=== PATIENT | male | born 1970 | race Caucasian/White ===

== ENCOUNTER 2021-10-19 10:02 | Inpatient (IN) ==
[2021-10-19] MEDS ORDERED: KETOROLAC 30 MG/1 ML VIAL IV STA (10:52)
[2021-10-19] MEDS ORDERED: HYDROmorphone 1 MG/1 ML SYRINGE IV STA ×2 (10:52→12:07)
[2021-10-19] MEDS ORDERED: ONDANSETRON 4 MG/2 ML VIAL IV STA (10:52)
[2021-10-19] MEDS ORDERED: SODIUM CHLORIDE 0.9% 1,000 ML IV STA (10:52)
[2021-10-19 11:48] LABS: Basophils % 0.2 % (0.0-0.8); Eosinophils % 0.2 % (0.00-10.9); Hematocrit 43.7 VOL% (42.0-52.0); Immature Granulocytes % 0.4 %; Immature Granulocytes Absolute 0.02 #; Lymphocytes # 0.8 10*3/uL (1.4-4.0); Lymphocytes % 15.8 % (21.2-54.2); Mean Platelet Volume 9.4 FL (9.6-12.0); Monocytes # 0.1 10*3/uL (0.11-0.8); Monocytes % 2.2 % (1.7-12.7); Neutrophils % 81.2 % (38.7-73.9); Platelet Count 242 T/CUMM (130-400); Red Cell Distribution Width 14.6 % (9.3-17.3); White Blood Count 4.9 T/CUMM (4-12)
[2021-10-19] MEDS ORDERED: PIPERACILLIN/TAZOBACTAM 3,375 MG in SODIUM CHLORIDE 0.9% 100 ML IV STA (12:01)
[2021-10-19 12:12] LABS: Calcium 9.7 MG/DL (8.5-10.1); Osmolality,Calculated 288.4 MOS/KG (273-304); Potassium 4.7 MMOL/L (3.5-5.1)
[2021-10-19 12:46] LABS: Band Neutrophils 27 % (0-10); Lymphocytes 15 % (20-55); Metamyelocytes 1 %; Platelet Estimate Adequate; Total Cells Counted 100
[2021-10-19] MEDS ORDERED: LORazepam 2 MG/1 ML VIAL IV PRN (12:59)
[2021-10-19] MEDS ORDERED: THIAMINE INJ 100 MG, FOLIC ACID INJ 1 MG, MULTIVITAMIN INJ 10 ML in SODIUM CHLORIDE 0.9... IV ONE (12:59)
[2021-10-19] MEDS ORDERED: ALBUTEROL/IPRATROPIUM 3 ML NEB RESP TX PRN (13:05)
[2021-10-19] MEDS ORDERED: GLUCAGON 1 MG VIAL IM PRN (13:15)
[2021-10-19] MEDS ORDERED: DEXTROSE 10% 250 ML BAG IV PRN (13:15)
[2021-10-19] MEDS ORDERED: LACTATED RINGERS 1,000 ML IV SCH ×2 (13:30)
[2021-10-19] MEDS: PANTOPRAZOLE 40 MG VIAL IV SCH (15:08)
[2021-10-19] MEDS: MEROPENEM 500 MG in SODIUM CHLORIDE 0.9% 100 ML IV SCH ×2 (15:09→20:55)
[2021-10-19] MEDS ORDERED: LACTATED RINGERS 1,000 ML IV ONE (16:55)
[2021-10-19] MEDS ORDERED: THIAMINE INJ 100 MG, FOLIC ACID INJ 1 MG, MAGNESIUM SULF INJ 2 GM, MULTIVITAMIN INJ 10 ... IV SCH (17:00)
[2021-10-19] MEDS: INSULIN LISPRO 100 UNIT/ML SUBCUT SCH (17:01)
[2021-10-19] MEDS: ACETAMINOPHEN 325 MG TABLET PO PRN (17:56)
[2021-10-19] MEDS: LACTATED RINGERS IV SCH (17:57)
[2021-10-19] MEDS: HYDROmorphone 1 MG/1 ML SYRINGE IV PRN ×2 (17:57→22:47)
[2021-10-19] MEDS: FOLIC ACID 1 MG IV SCH (17:57)
[2021-10-19] MEDS: [UNRECOGNIZED DRUG - OTHER] IV SCH (17:57)
[2021-10-19] MEDS: THIAMINE IV SCH (17:57)
[2021-10-19] MEDS: ONDANSETRON 4 MG/2 ML VIAL IV PRN ×2 (17:58→22:48)
[2021-10-19] MEDS: traZODone 50 MG TABLET PO SCH (20:52)
[2021-10-19 22:17] LABS: Bacteria,Urine Occasional /HPF (Few); Bilirubin,Urine Small mg/dL (Negative); Blood, Urine Trace mg/dL (Negative); Glucose,Urine (UA) Negative (Negative); Hyaline Casts,Urine 1 /LPF (0-3); Ketones,Urine Trace mg/dL (Negative); Nitrite,Urine Negative (Negative); Protein,Urine Trace mg/dL (Negative); RBC,Urine 6 /HPF (0-4); Squamous Epithelial Cell,Urine Occasional /HPF (0-10); Urine Appearance Clear (Clear); Urine Color Yellow (Yellow); Urine Specific Gravity 1.025 (1.001-1.035)
[2021-10-20] MEDS: ONDANSETRON 4 MG/2 ML VIAL IV PRN ×3 (00:58→20:26)
[2021-10-20] MEDS: HYDROmorphone 1 MG/1 ML SYRINGE IV PRN ×4 (01:01→20:27)
[2021-10-20] MEDS: THIAMINE IV SCH ×3 (02:04→17:32)
[2021-10-20] MEDS: FOLIC ACID 1 MG IV SCH ×3 (02:04→17:32)
[2021-10-20] MEDS: LACTATED RINGERS IV SCH ×3 (02:04→17:32)
[2021-10-20] MEDS: [UNRECOGNIZED DRUG - OTHER] IV SCH ×3 (02:04→17:32)
[2021-10-20] MEDS: MEROPENEM 500 MG in SODIUM CHLORIDE 0.9% 100 ML IV SCH ×4 (02:05→20:25)
[2021-10-20 05:39] LABS: Basophils % 0.1 % (0.0-0.8); Hematocrit 36.9 VOL% (42.0-52.0); Hemoglobin 11.7 GM/DL (14.0-18.0); Immature Granulocytes % 0.9 %; Immature Granulocytes Absolute 0.12 #; Lymphocytes # 0.5 10*3/uL (1.4-4.0); Lymphocytes % 3.6 % (21.2-54.2); Mean Corpuscular HGB Conc 31.7 GM/DL (32-36); Mean Corpuscular Volume 96.9 FL (87-102); Mean Platelet Volume 9.6 FL (9.6-12.0); Monocytes # 0.4 10*3/uL (0.11-0.8); Monocytes % 2.9 % (1.7-12.7); Neutrophils % 92.5 % (38.7-73.9); Platelet Count 193 T/CUMM (130-400); Red Blood Count 3.81 MC/CUMM (3.8-5.5); Red Cell Distribution Width 15.2 % (9.3-17.3); White Blood Count 13.4 T/CUMM (4-12)
[2021-10-20 06:08] LABS: Anisocytosis Slight; Band Neutrophils 53 % (0-10); Lymphocytes 6 % (20-55); Metamyelocytes 2 %; Myelocytes 2 %; Platelet Estimate Normal; Total Cells Counted 100
[2021-10-20 06:10] LABS: Albumin 2.3 G/DL (3.4-5.0); Bilirubin,Total 0.6 MG/DL (0.20-1.00); Calcium 7.8 MG/DL (8.5-10.1); Osmolality,Calculated 286.7 MOS/KG (273-304); Potassium 5.6 MMOL/L (3.5-5.1); Total Protein 6.2 G/DL (6.4-8.2)
[2021-10-20] MEDS ORDERED: MAGNESIUM SULF RIDER 2 GM/50 ML PREMIX IV PRN (07:50)
[2021-10-20] MEDS ORDERED: MAGNESIUM SULF RIDER 4 GM/100 ML PREMIX IV PRN (07:50)
[2021-10-20] MEDS: ACETAMINOPHEN 325 MG TABLET PO PRN ×2 (08:04→19:40)
[2021-10-20] MEDS: INSULIN LISPRO 100 UNIT/ML SUBCUT SCH ×3 (09:33→17:12)
[2021-10-20] MEDS: PANTOPRAZOLE 40 MG VIAL IV SCH (09:34)
[2021-10-20] MEDS: ASPIRIN EC 81 MG TABLET PO SCH (09:35)
[2021-10-20 20:08] LABS: Basophils % 0.2 % (0.0-0.8); Hematocrit 36.6 VOL% (42.0-52.0); Immature Granulocytes % 1.9 %; Immature Granulocytes Absolute 0.25 #; Lymphocytes # 0.6 10*3/uL (1.4-4.0); Lymphocytes % 4.2 % (21.2-54.2); Mean Corpuscular HGB Conc 32.8 GM/DL (32-36); Mean Corpuscular Volume 95.1 FL (87-102); Mean Platelet Volume 9.5 FL (9.6-12.0); Monocytes # 0.3 10*3/uL (0.11-0.8); Monocytes % 1.9 % (1.7-12.7); Neutrophils % 91.8 % (38.7-73.9); Platelet Count 212 T/CUMM (130-400); Red Blood Count 3.85 MC/CUMM (3.8-5.5); Red Cell Distribution Width 15.4 % (9.3-17.3); White Blood Count 13.4 T/CUMM (4-12)
[2021-10-20 20:21] LABS: Osmolality,Calculated 281.8 MOS/KG (273-304); Potassium 4.2 MMOL/L (3.5-5.1)
[2021-10-20] MEDS: traZODone 50 MG TABLET PO SCH (20:25)
[2021-10-21] MEDS: LACTATED RINGERS IV SCH ×5 (00:02→23:41)
[2021-10-21] MEDS: HYDROmorphone 1 MG/1 ML SYRINGE IV PRN ×2 (00:02→23:19)
[2021-10-21] MEDS: THIAMINE IV SCH ×5 (00:02→23:41)
[2021-10-21] MEDS: FOLIC ACID 1 MG IV SCH ×5 (00:02→23:41)
[2021-10-21] MEDS: [UNRECOGNIZED DRUG - OTHER] IV SCH ×5 (00:02→23:41)
[2021-10-21] MEDS: MEROPENEM 500 MG in SODIUM CHLORIDE 0.9% 100 ML IV SCH ×4 (02:24→20:48)
[2021-10-21] MEDS: LORazepam 1 MG TABLET PO PRN ×2 (05:13→11:02)
[2021-10-21 08:13] LABS: Basophils % 0.2 % (0.0-0.8); Hematocrit 34.9 VOL% (42.0-52.0); Immature Granulocytes % 2.3 %; Immature Granulocytes Absolute 0.24 #; Lymphocytes # 0.5 10*3/uL (1.4-4.0); Lymphocytes % 4.5 % (21.2-54.2); Mean Corpuscular HGB Conc 31.5 GM/DL (32-36); Mean Corpuscular Volume 96.7 FL (87-102); Mean Platelet Volume 9.5 FL (9.6-12.0); Monocytes # 0.2 10*3/uL (0.11-0.8); Monocytes % 1.8 % (1.7-12.7); Neutrophils % 91.2 % (38.7-73.9); Platelet Count 189 T/CUMM (130-400); Red Blood Count 3.61 MC/CUMM (3.8-5.5); Red Cell Distribution Width 15.6 % (9.3-17.3); White Blood Count 10.5 T/CUMM (4-12)
[2021-10-21 08:32] LABS: Calcium 8.9 MG/DL (8.5-10.1); Osmolality,Calculated 286.8 MOS/KG (273-304); Potassium 4.4 MMOL/L (3.5-5.1)
[2021-10-21 09:10] LABS: Anisocytosis 1+; Band Neutrophils 34 % (0-10); Lymphocytes 3 % (20-55); Platelet Estimate Normal; Total Cells Counted 100
[2021-10-21] MEDS: ASPIRIN EC 81 MG TABLET PO SCH (09:55)
[2021-10-21] MEDS: INSULIN LISPRO 100 UNIT/ML SUBCUT SCH ×3 (09:55→17:29)
[2021-10-21] MEDS: PANTOPRAZOLE 40 MG VIAL IV SCH (09:59)
[2021-10-21] MEDS: ONDANSETRON 4 MG/2 ML VIAL IV PRN ×2 (17:51→22:45)
[2021-10-21] MEDS: traZODone 50 MG TABLET PO SCH (20:48)
[2021-10-22] MEDS: MEROPENEM 500 MG in SODIUM CHLORIDE 0.9% 100 ML IV SCH ×4 (00:44→20:12)
[2021-10-22] MEDS: THIAMINE IV SCH ×4 (06:10→23:22)
[2021-10-22] MEDS: [UNRECOGNIZED DRUG - OTHER] IV SCH ×4 (06:10→23:22)
[2021-10-22] MEDS: LACTATED RINGERS IV SCH ×4 (06:10→23:22)
[2021-10-22] MEDS: FOLIC ACID 1 MG IV SCH ×4 (06:10→23:22)
[2021-10-22 08:33] LABS: Basophils % 0.1 % (0.0-0.8); Eosinophils % 0.1 % (0.00-10.9); Hematocrit 33.8 VOL% (42.0-52.0); Hemoglobin 10.6 GM/DL (14.0-18.0); Immature Granulocytes % 0.7 %; Immature Granulocytes Absolute 0.06 #; Lymphocytes # 0.6 10*3/uL (1.4-4.0); Lymphocytes % 6.7 % (21.2-54.2); Mean Corpuscular HGB Conc 31.4 GM/DL (32-36); Mean Corpuscular Volume 96.8 FL (87-102); Mean Platelet Volume 9.1 FL (9.6-12.0); Monocytes # 0.3 10*3/uL (0.11-0.8); Monocytes % 2.9 % (1.7-12.7); Neutrophils % 89.5 % (38.7-73.9); Platelet Count 184 T/CUMM (130-400); Red Blood Count 3.49 MC/CUMM (3.8-5.5); Red Cell Distribution Width 15.6 % (9.3-17.3); White Blood Count 8.6 T/CUMM (4-12)
[2021-10-22] MEDS: INSULIN LISPRO 100 UNIT/ML SUBCUT SCH ×3 (08:43→16:54)
[2021-10-22] MEDS: PANTOPRAZOLE 40 MG VIAL IV SCH (08:44)
[2021-10-22] MEDS: ASPIRIN EC 81 MG TABLET PO SCH (08:44)
[2021-10-22 08:51] LABS: Calcium 8.9 MG/DL (8.5-10.1); Osmolality,Calculated 285.5 MOS/KG (273-304); Potassium 4.3 MMOL/L (3.5-5.1)
[2021-10-22 09:00] LABS: Anisocytosis 1+; Band Neutrophils 20 % (0-10); Lymphocytes 7 % (20-55); Macrocytosis Slight; Platelet Estimate Normal; Total Cells Counted 100
[2021-10-22] MEDS: ONDANSETRON 4 MG/2 ML VIAL IV PRN ×2 (14:41→20:12)
[2021-10-22] MEDS: traZODone 50 MG TABLET PO SCH (20:46)
[2021-10-22] MEDS: HYDROmorphone 1 MG/1 ML SYRINGE IV PRN (22:22)
[2021-10-23] MEDS: MEROPENEM 500 MG in SODIUM CHLORIDE 0.9% 100 ML IV SCH ×4 (00:57→19:57)
[2021-10-23] MEDS: LACTATED RINGERS IV SCH ×2 (03:56→17:16)
[2021-10-23] MEDS: THIAMINE IV SCH ×2 (03:56→17:16)
[2021-10-23] MEDS: [UNRECOGNIZED DRUG - OTHER] IV SCH ×2 (03:56→17:16)
[2021-10-23] MEDS: FOLIC ACID 1 MG IV SCH ×2 (03:56→17:16)
[2021-10-23] MEDS: HYDROmorphone 1 MG/1 ML SYRINGE IV PRN ×2 (04:16→22:00)
[2021-10-23 06:18] LABS: Basophils % 0.2 % (0.0-0.8); Eosinophils % 0.4 % (0.00-10.9); Hematocrit 34.7 VOL% (42.0-52.0); Hemoglobin 10.6 GM/DL (14.0-18.0); Immature Granulocytes % 1.2 %; Immature Granulocytes Absolute 0.13 #; Lymphocytes # 0.6 10*3/uL (1.4-4.0); Lymphocytes % 5.9 % (21.2-54.2); Mean Corpuscular HGB Conc 30.5 GM/DL (32-36); Mean Corpuscular Volume 97.7 FL (87-102); Mean Platelet Volume 9.6 FL (9.6-12.0); Monocytes # 0.3 10*3/uL (0.11-0.8); Monocytes % 2.9 % (1.7-12.7); Neutrophils % 89.4 % (38.7-73.9); Platelet Count 215 T/CUMM (130-400); Red Blood Count 3.55 MC/CUMM (3.8-5.5); Red Cell Distribution Width 15.5 % (9.3-17.3); White Blood Count 10.9 T/CUMM (4-12)
[2021-10-23 06:49] LABS: Anisocytosis 1+; Band Neutrophils 17 % (0-10); Lymphocytes 5 % (20-55); Platelet Estimate Normal; Total Cells Counted 100
[2021-10-23 06:50] LABS: Macrocytosis Slight
[2021-10-23 07:01] LABS: Calcium 9.2 MG/DL (8.5-10.1); Osmolality,Calculated 287.4 MOS/KG (273-304); Potassium 4.1 MMOL/L (3.5-5.1)
[2021-10-23] MEDS ORDERED: DEXTROSE 10% 250 ML BAG IV PRN (07:30)
[2021-10-23] MEDS ORDERED: MIDAZOLAM 2 MG/2 ML VIAL IV ONE (09:41)
[2021-10-23] MEDS ORDERED: fentaNYL 100 MCG/2 ML VIAL IV ONE (09:41)
[2021-10-23] MEDS ORDERED: DIAZEPAM 5 MG TABLET PO ONE (09:41)
[2021-10-23 09:48] LABS: PT Patient Result 10.6 SECS (10.5-12.0)
[2021-10-23] MEDS: PANTOPRAZOLE 40 MG VIAL IV SCH (10:27)
[2021-10-23] MEDS: INSULIN LISPRO 100 UNIT/ML SUBCUT SCH ×3 (11:17→17:16)
[2021-10-23] MEDS: ASPIRIN EC 81 MG TABLET PO SCH (11:18)
[2021-10-23] MEDS: SODIUM CHLORIDE 0.45% 1,000 ML IV SCH (11:35)
[2021-10-23] MEDS: ONDANSETRON 4 MG/2 ML VIAL IV PRN ×2 (15:56→19:57)
[2021-10-23] MEDS: traZODone 50 MG TABLET PO SCH (20:02)
[2021-10-24] MEDS: MEROPENEM 500 MG in SODIUM CHLORIDE 0.9% 100 ML IV SCH ×4 (01:30→20:40)
[2021-10-24] MEDS: LACTATED RINGERS IV SCH ×4 (05:19→16:15)
[2021-10-24] MEDS: FOLIC ACID 1 MG IV SCH ×4 (05:19→16:15)
[2021-10-24] MEDS: [UNRECOGNIZED DRUG - OTHER] IV SCH ×4 (05:19→16:15)
[2021-10-24] MEDS: THIAMINE IV SCH ×4 (05:19→16:15)
[2021-10-24] MEDS: INSULIN LISPRO 100 UNIT/ML SUBCUT SCH ×3 (08:47→16:19)
[2021-10-24] MEDS: PANTOPRAZOLE 40 MG VIAL IV SCH (08:47)
[2021-10-24] MEDS: ASPIRIN EC 81 MG TABLET PO SCH (08:47)
[2021-10-24] MEDS: allopurinoL 300 MG TABLET PO SCH (11:18)
[2021-10-24] MEDS: SODIUM CHLORIDE 0.45% 1,000 ML IV SCH (14:08)
[2021-10-24] MEDS: traZODone 50 MG TABLET PO SCH (20:40)
[2021-10-25] MEDS: [UNRECOGNIZED DRUG - OTHER] IV SCH ×5 (00:08→23:57)
[2021-10-25] MEDS: THIAMINE IV SCH ×5 (00:08→23:57)
[2021-10-25] MEDS: LACTATED RINGERS IV SCH ×5 (00:08→23:57)
[2021-10-25] MEDS: FOLIC ACID 1 MG IV SCH ×5 (00:08→23:57)
[2021-10-25] MEDS: MEROPENEM 500 MG in SODIUM CHLORIDE 0.9% 100 ML IV SCH ×2 (01:13→08:16)
[2021-10-25] MEDS: ONDANSETRON 4 MG/2 ML VIAL IV PRN ×2 (04:45→20:54)
[2021-10-25 05:08] LABS: Basophils % 0.2 % (0.0-0.8); Eosinophils # 0.1 10*3/uL (0.0-0.87); Eosinophils % 1.2 % (0.00-10.9); Hematocrit 32.3 VOL% (42.0-52.0); Hemoglobin 10.2 GM/DL (14.0-18.0); Immature Granulocytes % 6.4 %; Immature Granulocytes Absolute 0.58 #; Lymphocytes # 1.3 10*3/uL (1.4-4.0); Lymphocytes % 14.1 % (21.2-54.2); Mean Corpuscular HGB Conc 31.6 GM/DL (32-36); Mean Corpuscular Volume 96.4 FL (87-102); Mean Platelet Volume 9.4 FL (9.6-12.0); Monocytes # 0.3 10*3/uL (0.11-0.8); Monocytes % 3.1 % (1.7-12.7); Platelet Count 230 T/CUMM (130-400); Red Blood Count 3.35 MC/CUMM (3.8-5.5); Red Cell Distribution Width 15.3 % (9.3-17.3)
[2021-10-25 05:27] LABS: Calcium 8.9 MG/DL (8.5-10.1); Osmolality,Calculated 278.8 MOS/KG (273-304); Potassium 4.2 MMOL/L (3.5-5.1)
[2021-10-25 05:35] LABS: Band Neutrophils 2 % (0-10); Eosinophils 1 % (0-10); Lymphocytes 14 % (20-55); Myelocytes 1 %; Total Cells Counted 100
[2021-10-25 05:36] LABS: Macrocytosis Slight; Platelet Estimate Normal
[2021-10-25] MEDS: allopurinoL 300 MG TABLET PO SCH (08:17)
[2021-10-25] MEDS: PANTOPRAZOLE 40 MG VIAL IV SCH (08:17)
[2021-10-25] MEDS: ASPIRIN EC 81 MG TABLET PO SCH (08:17)
[2021-10-25] MEDS: INSULIN LISPRO 100 UNIT/ML SUBCUT SCH ×3 (08:18→17:37)
[2021-10-25] MEDS: ERTAPENEM 1,000 MG in SODIUM CHLORIDE 0.9% 100 ML IV SCH (12:45)
[2021-10-25] MEDS: traZODone 50 MG TABLET PO SCH (20:54)
[2021-10-26] MEDS: ONDANSETRON 4 MG/2 ML VIAL IV PRN (02:09)
[2021-10-26 05:28] LABS: Basophils # 0.1 10*3/uL (0.0-0.2); Basophils % 0.4 % (0.0-0.8); Eosinophils # 0.1 10*3/uL (0.0-0.87); Eosinophils % 1.2 % (0.00-10.9); Hematocrit 32.9 VOL% (42.0-52.0); Hemoglobin 10.4 GM/DL (14.0-18.0); Immature Granulocytes % 6.3 %; Immature Granulocytes Absolute 0.74 #; Lymphocytes % 16.5 % (21.2-54.2); Mean Corpuscular HGB Conc 31.6 GM/DL (32-36); Mean Corpuscular Volume 95.1 FL (87-102); Mean Platelet Volume 9.5 FL (9.6-12.0); Monocytes # 0.3 10*3/uL (0.11-0.8); Monocytes % 2.6 % (1.7-12.7); Platelet Count 277 T/CUMM (130-400); Red Blood Count 3.46 MC/CUMM (3.8-5.5); Red Cell Distribution Width 15.2 % (9.3-17.3); White Blood Count 11.8 T/CUMM (4-12)
[2021-10-26 05:45] LABS: Calcium 8.7 MG/DL (8.5-10.1); Potassium 3.7 MMOL/L (3.5-5.1)
[2021-10-26] MEDS: FOLIC ACID 1 MG IV SCH (06:30)
[2021-10-26] MEDS: THIAMINE IV SCH (06:30)
[2021-10-26] MEDS: [UNRECOGNIZED DRUG - OTHER] IV SCH (06:30)
[2021-10-26] MEDS: LACTATED RINGERS IV SCH (06:30)
[2021-10-26 06:31] LABS: Lymphocytes 13 % (20-55); Total Cells Counted 100
[2021-10-26 06:33] LABS: Anisocytosis 1+; Platelet Estimate Normal; Schistocytes Slight
[2021-10-26] MEDS: ASPIRIN EC 81 MG TABLET PO SCH (09:00)
[2021-10-26] MEDS: allopurinoL 300 MG TABLET PO SCH (09:01)
[2021-10-26] MEDS: PANTOPRAZOLE 40 MG VIAL IV SCH (09:01)
[2021-10-26] MEDS: INSULIN LISPRO 100 UNIT/ML SUBCUT SCH ×2 (09:02→12:22)
[2021-10-26] MEDS: ERTAPENEM 1,000 MG in SODIUM CHLORIDE 0.9% 100 ML IV SCH (10:45)
[2021-10-26 11:39] VITALS: BP 147/77
== END 2021-10-26 14:00 | disposition home health service (06) | DRG 392 ==
LOC: N.ED 10:02 → N.3E 13:05
PROVIDERS: ADMIT Surgery; ATTEND Surgery

== ENCOUNTER 2021-12-11 08:27 | Inpatient (IN) ==
[2021-12-06 11:39] LABS: Basophils % 0.4 % (0.0-0.8); Eosinophils # 0.1 10*3/uL (0.0-0.87); Hematocrit 35.2 VOL% (42.0-52.0); Hemoglobin 11.3 GM/DL (14.0-18.0); Immature Granulocytes % 0.9 %; Immature Granulocytes Absolute 0.06 #; Lymphocytes # 2.1 10*3/uL (1.4-4.0); Lymphocytes % 31.7 % (21.2-54.2); Mean Corpuscular HGB Conc 32.1 GM/DL (32-36); Mean Corpuscular Volume 91.9 FL (87-102); Mean Platelet Volume 9.4 FL (9.6-12.0); Monocytes # 0.2 10*3/uL (0.11-0.8); Monocytes % 3.4 % (1.7-12.7); Neutrophils % 62.6 % (38.7-73.9); Platelet Count 208 T/CUMM (130-400); Red Blood Count 3.83 MC/CUMM (3.8-5.5); Red Cell Distribution Width 15.7 % (9.3-17.3); White Blood Count 6.7 T/CUMM (4-12)
[2021-12-06 11:51] LABS: Calcium 9.4 MG/DL (8.5-10.1); Osmolality,Calculated 293.4 MOS/KG (273-304)
[~2021-12-11 08:27] MED LIST: ALVIMOPAN 12 MG CAPSULE ONE; ERTAPENEM 1,000 MG in SODIUM CHLORIDE 0.9% 100 ML IV ONE; LACTATED RINGERS 1,000 ML IV SCH
[2021-12-11] MEDS ORDERED: FAMOTIDINE 20 MG TABLET PO ONE (08:59)
[2021-12-11] MEDS ORDERED: ACETAMINOPHEN 500 MG TABLET PO ONE (08:59)
[2021-12-11] MEDS ORDERED: ALVIMOPAN 12 MG CAPSULE PO SCH (09:00)
[2021-12-11] MEDS ORDERED: fentaNYL 100 MCG/2 ML VIAL ONE ×2 (11:58→14:18)
[2021-12-11] MEDS ORDERED: MIDAZOLAM 2 MG/2 ML VIAL ONE (11:59)
[2021-12-11] MEDS ORDERED: LIDOCAINE 2% 5 ML VIAL ONE (11:59)
[2021-12-11] MEDS ORDERED: propofoL 200 MG/20 ML VIAL IV ONE (11:59)
[2021-12-11] MEDS ORDERED: ROCURONIUM 50 MG/5 ML VIAL IV ONE ×2 (11:59→14:17)
[2021-12-11] MEDS ORDERED: DEXAMETHASONE 4 MG/1 ML VIAL ONE (12:06)
[2021-12-11] MEDS ORDERED: LIDOCAINE 1% 5 ML VIAL ONE (12:06)
[2021-12-11] MEDS ORDERED: ROPIVACAINE 0.5% 30 ML VIAL ONE (12:06)
[2021-12-11] MEDS ORDERED: PHENYLEPHRINE 1 MG/10 ML SYRINGE IV ONE (14:18)
[2021-12-11] MEDS ORDERED: ePHEDrine 50 MG/ML VIAL ONE (14:44)
[2021-12-11] MEDS ORDERED: INDOCYANINE GREEN 25 MG VIAL IV ONE (14:55)
[2021-12-11] MEDS ORDERED: DESFLURANE 1 UNIT/15 MINUTE INH ONE ×2 (15:07→16:33)
[2021-12-11] MEDS ORDERED: SEVOFLURANE 1 UNIT/15 MINUTE INH ONE (15:07)
[2021-12-11] MEDS ORDERED: TISSUE ADHESIVE 1 EACH APPLICATOR TOP ONE (15:49)
[2021-12-11] MEDS ORDERED: GLYCOPYRROLATE 0.4 MG/2 ML VIAL ONE (16:13)
[2021-12-11] MEDS ORDERED: ONDANSETRON 4 MG/2 ML VIAL ONE (16:13)
[2021-12-11] MEDS ORDERED: NEOSTIGMINE 10 MG/10 ML VIAL ONE (16:13)
[2021-12-11] MEDS ORDERED: HYDROmorphone 1 MG/1 ML SYRINGE ONE (16:38)
[2021-12-11] MEDS ORDERED: GLUCAGON 1 MG VIAL IM PRN (16:49)
[2021-12-11] MEDS ORDERED: MEPERIDINE 50 MG/1 ML VIAL ONE (16:49)
[2021-12-11] MEDS ORDERED: ONDANSETRON 4 MG/2 ML VIAL IV PRN (16:49)
[2021-12-11] MEDS ORDERED: HYDROmorphone 1 MG/1 ML SYRINGE IV PRN ×2 (16:49→16:54)
[2021-12-11] MEDS ORDERED: MEPERIDINE 25 MG/1 ML VIAL IV PRN (16:54)
[2021-12-11] MEDS ORDERED: DEXTROSE 10% 250 ML BAG IV PRN (17:04)
[2021-12-11 17:16] LABS: Basophils % 0.2 % (0.0-0.8); Eosinophils % 0.1 % (0.00-10.9); Hematocrit 38.6 VOL% (42.0-52.0); Hemoglobin 12.4 GM/DL (14.0-18.0); Immature Granulocytes % 0.6 %; Immature Granulocytes Absolute 0.09 #; Lymphocytes # 0.9 10*3/uL (1.4-4.0); Lymphocytes % 6.1 % (21.2-54.2); Mean Corpuscular HGB Conc 32.1 GM/DL (32-36); Mean Corpuscular Volume 91.9 FL (87-102); Mean Platelet Volume 8.8 FL (9.6-12.0); Monocytes # 0.3 10*3/uL (0.11-0.8); Platelet Count 204 T/CUMM (130-400); Red Cell Distribution Width 15.9 % (9.3-17.3); White Blood Count 14.9 T/CUMM (4-12)
[2021-12-11 17:37] LABS: Calcium 9.1 MG/DL (8.5-10.1); Osmolality,Calculated 280.7 MOS/KG (273-304); Potassium 4.4 MMOL/L (3.5-5.1)
[2021-12-11 17:43] LABS: Band Neutrophils 25 % (0-10); Lymphocytes 4 % (20-55); Metamyelocytes 1 %; Platelet Estimate Adequate; Total Cells Counted 100
[2021-12-11] MEDS: LACTATED RINGERS 1,000 ML IV SCH (18:05)
[2021-12-11] MEDS: KETOROLAC 30 MG/1 ML VIAL IV SCH ×2 (18:05→22:32)
[2021-12-11] MEDS: ALVIMOPAN 12 MG CAPSULE PO SCH (20:44)
[2021-12-11] MEDS: traZODone 50 MG TABLET PO SCH (20:44)
[2021-12-11] MEDS ORDERED: POTASSIUM CHLORIDE 20 MEQ TABLET PO SCH (21:00)
[2021-12-11] MEDS: INSULIN REGULAR 100 UNIT/ML SUBCUT SCH (21:40)
[2021-12-12 03:31] LABS: Basophils % 0.1 % (0.0-0.8); Hematocrit 33.8 VOL% (42.0-52.0); Hemoglobin 11.1 GM/DL (14.0-18.0); Immature Granulocytes % 0.5 %; Immature Granulocytes Absolute 0.07 #; Lymphocytes % 7.1 % (21.2-54.2); Mean Corpuscular HGB Conc 32.8 GM/DL (32-36); Mean Corpuscular Volume 89.9 FL (87-102); Mean Platelet Volume 9.1 FL (9.6-12.0); Monocytes # 0.5 10*3/uL (0.11-0.8); Monocytes % 3.7 % (1.7-12.7); Neutrophils % 88.6 % (38.7-73.9); Platelet Count 224 T/CUMM (130-400); Red Blood Count 3.76 MC/CUMM (3.8-5.5); Red Cell Distribution Width 15.9 % (9.3-17.3); White Blood Count 13.9 T/CUMM (4-12)
[2021-12-12 03:47] LABS: Calcium 8.7 MG/DL (8.5-10.1); Potassium 5.5 MMOL/L (3.5-5.1)
[2021-12-12] MEDS: KETOROLAC 30 MG/1 ML VIAL IV SCH ×4 (04:57→22:33)
[2021-12-12] MEDS: LACTATED RINGERS 1,000 ML IV SCH (04:57)
[2021-12-12] MEDS: ASPIRIN EC 81 MG TABLET PO SCH (08:20)
[2021-12-12] MEDS: INSULIN REGULAR 100 UNIT/ML SUBCUT SCH ×4 (08:20→20:43)
[2021-12-12] MEDS: ENOXAPARIN 40 MG/0.4 ML SYRINGE SUBCUT SCH (08:20)
[2021-12-12] MEDS: ALVIMOPAN 12 MG CAPSULE PO SCH ×2 (08:20→20:42)
[2021-12-12] MEDS: allopurinoL 300 MG TABLET PO SCH (08:21)
[2021-12-12] MEDS: traZODone 50 MG TABLET PO SCH (20:42)
[2021-12-12] MEDS ORDERED: SIMVASTATIN 20 MG TABLET PO SCH (21:00)
[2021-12-12] MEDS ORDERED: TAMSULOSIN 0.4 MG CAPSULE PO SCH (21:00)
[2021-12-13] MEDS: KETOROLAC 30 MG/1 ML VIAL IV SCH (04:52)
[2021-12-13] MEDS: ENOXAPARIN 40 MG/0.4 ML SYRINGE SUBCUT SCH (08:54)
[2021-12-13] MEDS: ASPIRIN EC 81 MG TABLET PO SCH (08:54)
[2021-12-13] MEDS: ALVIMOPAN 12 MG CAPSULE PO SCH (08:55)
[2021-12-13] MEDS: allopurinoL 300 MG TABLET PO SCH (08:55)
[2021-12-13] MEDS: INSULIN REGULAR 100 UNIT/ML SUBCUT SCH (08:55)
[2021-12-13 11:35] VITALS: BP 139/77
== END 2021-12-13 11:58 | disposition home or self-care (01) | DRG 329 ==
LOC: N.OR 08:27 → N.SDSINP 08:29 → N.3E 16:35
PROVIDERS: ADMIT Surgery; ATTEND Surgery